=== PATIENT | female | born 1970 | race African-American/Black ===

== ENCOUNTER 2018-07-08 18:17 | Emergency (ER) | payer BC ==
[~2018-07-08] VITALS: Ht 154.9 cm; Wt 79.4 kg
[2018-07-08 18:30] VITALS: BP 142/76
[2018-07-08] MEDS ORDERED: LIDOCAINE WITH 8.4% SOD BICARB 3 ML DISP.SYRIN. INJ ONE (19:15)
[2018-07-08] MEDS ORDERED: HYDR-3164 PO (19:53)
--- NOTE | 2018-07-08 19:54 | PHYS DOC ---
Past Medical History Past Medical History: No Pertinent History Past Surgical History: No Surgical History Alcohol Use: None Drug Use: None Adult General Chief Complaint Chief Complaint: LACERATION/AVULSION [facility] Patient is a 47 year old female who presents with a laceration to her left thumb after she was cutting sweet potatoes this evening fixing dinner. She states that the knife slipped cutting the base of her thumb. She denies any other injury. She states that she has had a recent tetanus booster. Review of Systems Review of Systems Constitutional: Denies fever or chills [] Respiratory: Denies cough or shortness of breath [] Cardiovascular: No additional information not addressed in HPI [] Integument: See history of present illness Neurologic: Denies headache, focal weakness or sensory changes [] Endocrine: Denies polyuria or polydipsia [] All other systems were reviewed and found to be within normal limits, except as documented in this note. Current Medications Current Medications Current Medications Medications (Trade) Dose Ordered Sig/Lyric Start Time Stop Time Status Last Admin Dose Admin Lidocaine/Sodium Bicarbonate (Buffered Lidocaine 1%) 3 ml 1X ONCE 07/08/18 19:15 07/08/18 19:16 DC 07/08/18 19:18 3 ML Allergies Allergies Allergies Coded Allergies Type Severity Reaction Last Updated Verified No Known Drug Allergies 12/06/14 No Physical Exam Physical Exam Constitutional: Well developed, well nourished, no acute distress, non-toxic appearance. [] Cardiovascular:Heart rate regular rhythm, no murmur [] Lungs & Thorax: Bilateral breath sounds clear to auscultation [] Abdomen: Bowel sounds normal, soft, no tenderness, no masses, no pulsatile masses. [] Skin: 1.5 cm laceration to the palmar base of the left first digit that is slightly gaping, bleeding is controlled Neurologic: Alert and oriented X 3, normal motor function, normal sensory function, no focal deficits noted. [] Psychologic: Affect normal, judgement normal, mood normal. [] Current Patient Data Vital Signs Vital Signs Date Time Temp Pulse Resp B/P (MAP) Pulse Ox O2 Delivery O2 Flow Rate FiO2 07/08/18 18:30 98.6 72 16 142/76 (98) 99 Room Air 98.6 EKG EKG [] Radiology/Procedures Radiology/Procedures []Laceration Repair by me: Anesthesia: 1% lidocaine locally Location: Left first digit Tendon/Joint/Nerves: No injury Foreign body: None detected after copious irrigation and exploration Technique: 3 Simple Interrupted Sutures Complexity: No subcutaneous sutures/mucosal repair/edge excision Post Closure Length: 1.5 cm Patient's bleeding was easily controlled in the department and there is no indication of anemia. No evidence of compartment syndrome, neurologic injury, vascular injury, open joint, tendon laceration, or foreign body. Patient is appropriate for outpatient follow up. 48 hour wound check. Scar minimization instructions given. Course & Med Decision Making Course & Med Decision Making Pertinent Labs and Imaging studies reviewed. (See chart for details) []The patient did become extremely anxious while waiting to start the repair. She felt like she was going to pass out. The nurse administered cold towels which the patient states helped. She did hyperventilate but declined anti- anxiety medication. Following the suture repair she was given warm blankets and recovered completely. Dragon Disclaimer Dragon Disclaimer This electronic medical record was generated, in whole or in part, using a voice recognition dictation system. Departure Departure Impression: Primary Impression: Laceration Disposition: 01 HOME, SELF-CARE Condition: STABLE Referrals: NO PCP (PCP) Patient Instructions: Laceration Care, Adult Additional Instructions: Keep wound clean and dry. Follow-up with your primary care provider in 7-10 days for suture removal. If worsening return to the emergency department. You were prescribed a small amount of pain medication. Do not drive or operate heavy machinery while taking this pain medication. Scripts Hydrocodone/Apap 5-325 (NORCO 5-325 TABLET) 1 Each Tablet 1 TAB PO PRN Q6HRS PRN for PAIN, #10 TAB 0 Refills Prov: ANASTACIA GIRALDO APRN 07/08/18 ANASTACIA GIRALDO APRN Jul 08, 2018 19:54
== END 2018-07-08 20:05 | disposition home or self-care (01) ==
LOC: ER 18:17
DX: S61.012A Laceration without foreign body of left thumb without damage to nail, initial encounter (principal); W26.0XXA Contact with knife, initial encounter; Y93.89 Activity, other specified; Y92.89 Other specified places as the place of occurrence of the external cause; Y99.8 Other external cause status
CPT/HCPCS: 12001; 99283